=== PATIENT | female | born 1985 | race African-American/Black ===

== ENCOUNTER 2025-09-25 11:23 | Emergency (ER) | payer OTHER, SELFPAY ==
[2025-09-25] VITALS (7 sets, daily range): BP systolic 115–139; BP diastolic 75–89; BMI 35.3
[2025-09-25 11:50] LABS: Hematocrit 38.4 % (37.0-47.0); Hemoglobin 12.6 g/dL (12.0-16.0); Mean Corp Hgb Conc. 32.8 g/dL (33.0-37.0); Mean Corpuscular Volume 85.1 fL (81.0-99.0); Nucleated Red Blood Cells % 0 %; Platelet Count 269 10^3/uL (130-400); Red Cell Dist. Width 12.7 % (11.5-14.5)
--- NOTE | 2025-09-25 11:54 | ED.GENMED ---
History of Present Illness
<Anuj Henning MD, Resident - Last Filed: 09/25/25 15:54>
General
Chief Complaint: Chest Pain
Source: patient
Time Seen by Provider: 09/25/25 11:32
History of Present Illness
History of Present Illness:
Patient is a 40-year-old female with PMH of asthma who presented to the ED with chest pain that started this morning. Patient developed sharp chest pain in the right upper chest while at home around 10 AM this morning that brought her to her knees.
The pain spontaneously decreased in intensity, and the patient went to [facility]. While at [facility], the pain increased in intensity enough to again bring her to her knees, and EMS was called to transport the patient to the ED. The pain
was sudden onset and has been constant, fluctuating between 5�10/10 intensity. The pain is worse with movement of her right arm and radiates into her right arm and shoulder. Nonexertional. Pleuritic. No trauma. No association with eating. No
leg pain or swelling. No associated symptoms. Patient has had similar episodes approximately 1 time per year 'for years'. No prior intervention for those episodes. No recent illnesses, sick contacts, or travel. No personal history of blood
clots, cardiac problems, or cancer. Patient had an unremarkable mammogram within the last year. Patient has a remote diagnosis of asthma, but she has not had any issues or required medications in a long time (15+ years). Patient inquires whether
the pain could be related to anxiety.
Past History
<Anuj Henning MD, Resident - Last Filed: 09/25/25 15:54>
Past History
ED Past Medical History: Asthma and Psychiatric (Anxiety)
ED Past Surgical History: None
Family History
Family History: Other (Congenital bicuspid valve (unspecified) - father)
Review of Systems
<Anuj Henning MD, Resident - Last Filed: 09/25/25 15:54>
Review of Systems
Constitutional: Denies fever, fatigue or chills
Respiratory: Reports trouble breathing; Denies cough or hemoptysis
Cardiac: Reports chest pain
ABD/GI: Denies abdominal pain, nausea, vomiting or diarrhea
: Reports no symptoms
Neurological: Denies headache
Phy Exam
<Anuj Henning MD, Resident - Last Filed: 09/25/25 15:54>
Physical Exam
Physical Exam:
General: NAD. Conversant.
CV: RRR. S1, S2 noted. No M/R/G. No LE edema.
Pulm: CTAB. No wheezes or crackles.
MSK: TTP right chest wall and axilla. No lymphadenopathy. Right chest and shoulder pain w/ forward flexion and abduction of right arm. Clavicles non-TTP with no step-offs. No deformities, erythema, or swelling. Right shoulder ROM limited due to
pain.
GI: Soft, nontender. Nondistended.
Neuro: A&O x 3. No focal deficits. CN II through XII grossly intact.
Psych: Anxious.
Scores
<Anuj Henning MD, Resident - Last Filed: 09/25/25 15:54>
Heart Score for Chest Pain Patients
STEMI patient?: No
History: Slightly or Non-Suspicious
ECG: Normal
Age: </= 45 years
Risk Factors: No Risk Factors
Troponin: </= Normal Limit
Heart Score for Chest Pain Patients: 0
Heart Score Risk: 2.5% MACE over next 6 weeks
<Patricio Pickard MD - Last Filed: 09/27/25 12:34>
Heart Score for Chest Pain Patients
Heart Score for Chest Pain Patients: 0
Heart Score Risk: 2.5% MACE over next 6 weeks
Course
<Anuj Henning MD, Resident - Last Filed: 09/25/25 15:54>
Orders/Labs/Results
Orders:
Orders
09/25/25 11:24
Electrocardiogram (*1) Urgent
Reason for Study: Chest Pain
09/25/25 11:25
EKG- Treatment ONCE
09/25/25 11:37
CXR2 [CR Chest - 2 Views ] Urgent
Comment:
Reason For Exam: chest pain
09/25/25 11:39
Complete Blood Count/With Diff Urgent
Comprehensive Metabolic Panel Urgent
HCG, Serum Qualitative Screen Urgent
Comment: ADD ON
Troponin I Urgent
09/25/25 12:53
D-Dimer Urgent
09/25/25 13:02
Ketorolac [Toradol] 30 mg IV NOW STA
09/25/25 13:42
CT Chest PE Study Urgent
Comment:
Reason For Exam: chest pain w elevated d-dimer
09/25/25 13:57
Add On- LAB Urgent
Tests Added?: HCG Qualitative
09/25/25 14:56
Electrocardiogram (*1) Urgent
Reason for Study: Chest Pain
EKG- Treatment ONCE
09/25/25 15:14
Troponin I Urgent
Abnormal Lab Results
09/25/25 09/25/25
11:39 12:53
MCHC 32.8 L g/dL
(33.0-37.0)
D-Dimer 0.55 H ug/mlFEU
(0.00-0.50)
09/25/25 11:39
09/25/25 11:39
Vital Signs
Initial and Last Documented VS:
Initial Vital Signs
BP
139/89
09/25/25 11:26
Last Documented Vital Signs
Temp Pulse Resp BP Pulse Ox
98.7 F 66 12 124/80 100
09/25/25 11:27 09/25/25 14:29 09/25/25 14:29 09/25/25 16:00 09/25/25 14:15
<Patricio Pickard MD - Last Filed: 09/27/25 12:34>
Orders/Labs/Results
Orders:
Orders
09/25/25 11:24
Electrocardiogram (*1) Urgent
Reason for Study: Chest Pain
09/25/25 11:25
EKG- Treatment ONCE
09/25/25 11:37
CXR2 [CR Chest - 2 Views ] Urgent
Comment:
Reason For Exam: chest pain
09/25/25 11:39
Complete Blood Count/With Diff Urgent
Comprehensive Metabolic Panel Urgent
HCG, Serum Qualitative Screen Urgent
Comment: ADD ON
Troponin I Urgent
09/25/25 12:53
D-Dimer Urgent
09/25/25 13:02
Ketorolac [Toradol] 30 mg IV NOW STA
09/25/25 13:42
CT Chest PE Study Urgent
Comment:
Reason For Exam: chest pain w elevated d-dimer
09/25/25 13:57
Add On- LAB Urgent
Tests Added?: HCG Qualitative
09/25/25 14:56
Electrocardiogram (*1) Urgent
Reason for Study: Chest Pain
EKG- Treatment ONCE
09/25/25 15:14
Troponin I Urgent
Abnormal Lab Results
09/25/25 09/25/25
11:39 12:53
MCHC 32.8 L g/dL
(33.0-37.0)
D-Dimer 0.55 H ug/mlFEU
(0.00-0.50)
09/25/25 11:39
09/25/25 11:39
Vital Signs
Initial and Last Documented VS:
Initial Vital Signs
BP
139/89
09/25/25 11:26
Last Documented Vital Signs
Temp Pulse Resp BP Pulse Ox
98.7 F 66 12 124/80 100
09/25/25 11:27 09/25/25 14:29 09/25/25 14:29 09/25/25 16:00 09/25/25 14:15
<Anuj Henning MD, Resident - Last Filed: 09/25/25 15:54>
MDM/Problems Addressed
Differential Diagnosis Includes:
Myocardial infarction
Pulmonary embolism
Pneumothorax
Costochondritis
Fracture
Muscle strain
Anxiety
MDM/Problems Addressed:
Assessment: Patient is a 40-year-old female with PMH of asthma who presented to the [facility] with right upper chest wall pain that is fluctuating between 5�10/10 in intensity, reproducible with palpation and arm movement, and not associated
with any other symptoms. Patient endorsed mild shortness of breath at the bedside, that she did not have any earlier in the day. EKG, CXR, troponin x2, CBC, and CMP unremarkable. D-dimer mildly elevated, CT PE study. CT PE negative for PE,
parenchymal consolidation, pneumothorax, pleural effusion, or pericardial effusion. Overall, workup for acute cardiopulmonary pathology negative. Suspect etiology of chest pain is musculoskeletal or reflux in nature.
Plan:
# Atypical chest pain
Labs: CBC, CMP, troponins x 2, D-dimer
Imaging: CXR, CTPE
EKG
Plan for discharge with following recommendations:
- OTC PPI for symptoms of gastroesophageal reflux
- NSAIDs for musculoskeletal pain
- Follow-up with the PCP for further evaluation
- If atypical chest pain persists, consider evaluation by cardiology
<Anuj Henning MD, Resident - Last Filed: 09/25/25 15:54>
*Pulse Oximetry
SaO2: 100
Oxygen Mode of Delivery: Room air
Patient hypoxic: no
*Critical Care Note
Total Time (30-74mins, 75-104mins- exclusive of procedures): Not Applicable
ED Attending Note
<Anuj Henning MD, Resident - Last Filed: 09/25/25 15:54>
-
Portions of this chart may have been created with voice recognition software.� Occasional wrong word or��sound alike� substitutions may have occurred due to the inherent limitations of voice recognition software.
<Patricio Pickard MD - Last Filed: 09/27/25 12:34>
ED Attending Note
Patient seen and examined by attending physician: Yes
ED Attending Note:
Patient without any significant Steve history, presents to ED secondary to sudden onset of sharp right-sided chest pain, while she was at home this morning around 10 AM. Chest pain described as sharp, nonradiating, worse with certain movements,
without any alleviating factors. Denies trauma. Denies recent injury. Denies nausea or vomiting. Denies dizziness or diaphoresis. Denies recent illness. Denies recent travel or surgery. Denies back pain. Denies leg pain or swelling. Denies
family history of early heart disease or blood clots. Denies smoking. Patient states that she has had similar symptoms in the past, but has never been evaluated. Of note, patient does report working out regularly, including cardiovascular
exercise as well as working with weights. Denies change in routine.
Physical Exam
General: mild painful distress, not acutely ill. afebrile
Head: nc/at. eomi
Neck: supple. normal range of motion.
Heart: s1/s2 regular rate and rhythm
Lungs: no acute respiratory distress. clear bilaterally. upper chest wall tenderness to palpation, without rash/erythema/ecchymosis
Abdomen: normal bowel sounds. not tender.
Neuro: alert and oriented x 3. no focal neurological deficits
Skin: no rash
Psychiatric: well kept. interactive and cooperative
Extremities: no edema. no calf tenderness.
History and exam inconsistent with ACS, but likely musculoskeletal in etiology, with focal reproducible chest wall pain. Will check blood work, including D-dimer and treat with Toradol IV and reassess.
D-dimer negative. Repeat trop negative. Pt will be discharged home in stable condition, to the care of her family, with recommendation to f/u with pmd for re-evaluation, including potential referral to cardiology, if symptoms persist
Discharge Plan
Departure
Patient Disposition: Home (Routine Discharge)
Date of Disposition: 09/25/25
Time of Disposition: 15:56
Patient with high blood pressure during this ER visit?: Yes
Condition: Good
Covid-19: Not Applicable
Discharge Problem:
Chest pain
Instructions: Acid Reflux and GERD in Adults (DC), Chest Pain PCP Follow Up, BLOOD PRESSURE
Referrals:
Elias Cunha IV, MD [Family Provider, Family Practice]
Activity Restrictions/Additional Instructions:
- Recommend [id number] proton pump inhibitor for symptoms of gastroesophageal reflux
- Recommend NSAIDs for relief of musculoskeletal pain
- Recommend follow-up with your PCP in the outpatient setting
- If chest pain persists, consider outpatient evaluation by cardiology
- Return to ED if worsening chest pain, shortness of breath, nausea, or vomiting
Interventions
Interventions:
*Risk Screen - Suicide Last Done: 09/25/25 11:33
*General Assessment Last Done: 09/25/25 11:25
*Neglect/Abuse Screening Last Done: 09/25/25 11:33
*ED- Fall Risk Assessment Last Done: 09/25/25 11:25
*ED COVID-19 Vaccine History Last Done: 09/25/25 11:25
*ED Influenza Vaccine History Last Done: 09/25/25 11:25
*Nursing Disposition Last Done: 09/25/25 16:17
ED- Cardiac Assessment Last Done: 09/25/25 11:42
Discharge Date and Time
Discharge Date/Time: 09/25/25 16:17
Print Language: AZERI
[2025-09-25 12:05] LABS: ALT (SGPT) 23 U/L (0-35); AST (SGOT) 21 U/L (14-36); Albumin 4.6 g/dl (3.5-5.0); Alkaline Phosphatase 51 U/L (38-126); Blood Urea Nitrogen 11 mg/dl (7-17); Calcium 9.7 mg/dl (8.4-10.2); Carbon Dioxide 26 mmol/L (22-30); Chloride 105 mmol/L (98-107); Estimated Creatinine Clearance 94 ml/min; Glucose 99 mg/dl (70-99); Potassium 4.4 mmol/L (3.5-5.1); Sodium 139 mmol/L (135-145); Total Protein 7.9 g/dl (6.3-8.2); eGFR > 60.00
[2025-09-25 12:16] LABS: Troponin I < 0.012 ng/ml
[2025-09-25] MEDS: TORADOL 30 MG IV (13:17)
[2025-09-25 13:19] LABS: D-Dimer 0.55 ug/mlFEU (0.00-0.50)
[2025-09-25 14:24] LABS: HCG, Serum Qualitative Screen Negative
[2025-09-25 15:46] LABS: Troponin I < 0.012 ng/ml
== END 2025-09-25 16:17 | disposition home or self-care (01) ==
LOC: EMR 11:23
PROVIDERS: EMERGENCY PHYSICIAN Emergency Medicine; FAMILY PHYSICIAN Family Medicine
DX: R07.89 Other chest pain (principal); M79.601 Pain in right arm; M25.511 Pain in right shoulder; R03.0 Elevated blood-pressure reading, without diagnosis of hypertension; J45.909 Unspecified asthma, uncomplicated; F41.9 Anxiety disorder, unspecified
CPT/HCPCS: 99285; 96374; 71046; 71275; 80053; 84484; 84703; 85025; 85379; 93005; Q9967